=== PATIENT | female | born 1995 | race Caucasian/White ===

== ENCOUNTER 2018-05-11 21:01 | Emergency (ER) | payer MEDICAID, SELFPAY ==
[2018-05-11 21:03] VITALS: BP 164/82; PULSE 91; RESP 20; TEMP 36.6; O2SAT 100; BMI 46.7
--- NOTE | 2018-05-11 21:21 | ED.RN ---
rn called for ekg, no old ekgs in [facility]
--- NOTE | 2018-05-11 21:29 | EKG12_ITS ---
Test Reason : PALPITATIONS Blood Pressure : / mmHG Vent. Rate : 081 BPM Atrial Rate : 081 BPM P-R Int : 154 ms QRS Dur : 090 ms QT Int : 358 ms P-R-T Axes : 020 030 002 degrees QTc Int : 415 ms Normal sinus rhythm Normal ECG Confirmed by ROSA ELENA BEE MD ([id number]), rewrite editor YAIR STOKES ([id number]) on 05/15/2018 2:37:01 PM Referred By: DULCE/MARYSOL Confirmed By:ROSA ELENA BEE MD
[2018-05-11 21:47] LABS: Absolute Lymphocyte Count 1.94 X10^3/ul (0.83-4.51); Basophil# 0.03 X10^3/uL; Basophil% 0.3 % (0-1); Eosinophil# 0.07 X10^3/uL; Eosinophils% 0.6 % (0-5); Hematocrit 40.4 % (37-47); Hemoglobin 13.5 g/dl (12.0-15.0); Lymphocyte # 1.94 X10^3/ul (4.0); Lymphocyte % 16.5 % (19-41); Mean Corp Hgb Conc 33.4 g/gl (32-36); Mean Corpuscular Hgb 28.7 pg (27.0-32.0); Monocyte# 0.75 X10^3/uL; Monocyte% 6.4 % (0-10); Neutrophil # 8.99 X10^3/uL (2.7-7.7); Neutrophil % 76.1 % (47-70); POSITIVE COUNT NO; POSITIVE DIFFERENTIAL NO; POSITIVE MORPHOLOGY NO; Platelet Count 216 K/mm3 (150-450); RBC Distribution Width CV 12.9 % (11.6-14.6); White Blood Count 11.8 K/mm3 (4.4-11.0)
--- NOTE | 2018-05-11 21:51 | ED.VISSUMM ---
- ER Visit Summary Date of Service: 05/11/18 Chief Complaint: Heart beating hard History of Present Illness: The patient is a 23 F Patient states for the past couple weeks she has felt that her heart is beating hard. In asking her to describe this a little bit further she states that all of a sudden she will feel an extra beat and then her heart pauses. She went to what sounds like urgent care and had an EKG was negative and was told that if it keeps happening they would older a Holter monitor. Patient was also advised to decrease her caffeine intake. She has done this. She continues to smoke. She continues to have symptoms. She has a history of anxiety and believes that that is compounding the issue tonight. Physical Examination: Afebrile vital signs are stable Gen: Well-nourished well-developed Head: Normocephalic atraumatic Eyes: Perrl EOMI ENT: TMs clear no rhinorrhea moist mucous membranes Neck: Supple no lymphadenopathy no JVD nontender CVS: Regular rate rhythm no murmurs normal S1-S2 Respiratory: No distress clear to auscultation bilaterally chest nontender Abdomen: Soft nontender nondistended normal bowel sounds no masses Back: Nontender Extremity: Nontender no edema Skin: Normal color no rash Neuro: alert orientated ?3 CN II-XII intact normal strength sensation reflexes gait cerebellar Psych: Anxious Test Results: EKG demonstrates sinus rhythm without ectopy. See BMP TSH and test negative. Emergency Department Course and Treatment: Patient was advised to decrease caffeine use. She was advised to stop smoking. She should follow-up with primary care and discuss addition of a Holter monitor. Impression: 1. Palpitations This note was generated with Motionbox dictation software. It may contain incorrect words, spelling, and punctuation that were not noted in review of the chart prior to signing ED Disposition - Plan for ED Patient: Disposition: Home or Assisted Living Chief Complaint: Palpitations Instructions: ED Palpitations, Premature Ventricular Contractions Referrals: Walker Marroquin MD [STAFF PHYSICIAN] - (call to arrange follow up with primary care)
--- NOTE | 2018-05-11 21:58 | RAD_ITS ---
STUDY: X-RAY CHEST REASON FOR EXAM: Female, 23 years old. Chest pain TECHNIQUE: Frontal view of the chest COMPARISON: None. FINDINGS: The lungs are clear. There are no pleural effusions. There is no pneumothorax. The heart is normal in size. The visualized osseous structures are within normal limits. RAD/Chest 1 View (Portable) IMPRESSION: No acute thoracic pathology. Electronically Signed: Luis Alfredo Cruz, at 22:08 EDT Tel , Service support ,
[2018-05-11 22:10] LABS: Pregnancy, Serum, hCG Quali. NEGATIVE Negative (0-9 Nonpreg)
[2018-05-11 22:12] LABS: Anion Gap 10 (5-15); BUN 14 mg/dL (7-18); BUN/Creat Ratio 21.2 RATIO (10-20); Calcium,Total 8.8 mg/dL (8.5-10.1); Chloride 106 mmol/L (98-107); Creatinine, Serum 0.66 mg/dL (0.55-1.02); EST Glomerular Filtration Rate 120 mL/min (>60); Est Glom Filt Rate - Afr Amer 145 mL/min (>60); Estimated Creatinine Clearance 121.33 ml/min; Glucose 81 mg/dL (74-106); Potassium 3.7 mmol/L (3.5-5.1); Sodium Level 140 mmol/L (136-145); Thyroid Stim Hormone (TSH) 1.44 uIU/mL (0.358-3.74)
[2018-05-11 22:18] VITALS: BP 158/99; PULSE 82; RESP 16; O2SAT 99
== END 2018-05-11 22:24 | disposition home or self-care (01) ==
PROVIDERS: Emergency Provider Emergency Medicine
DX: R00.2 Palpitations (principal); E66.9 Obesity, unspecified; Z72.0 Tobacco use; F41.9 Anxiety disorder, unspecified; Z79.899 Other long term (current) drug therapy
CPT/HCPCS: 71045; 80048; 84443; 84703; 85025; 93005; 99285; A4216

== ENCOUNTER → 2018-05-24 10:55 | Outpatient (CLI) | payer MEDICAID, SELFPAY | PROVIDERS: Family Provider Internal Medicine; PCP Internal Medicine; Referring Provider Nurse Practitioner; Visit Provider Nurse Practitioner | DX: R00.2 Palpitations (principal) | CPT/HCPCS: 93225; 93226 ==

== ENCOUNTER 2020-02-02 21:39 | Emergency (ER) | payer MEDICAID, SELFPAY ==
[2020-02-02 21:40] VITALS: BP 158/88; PULSE 108; RESP 15; TEMP 36.7; O2SAT 96; BMI 49.8
--- NOTE | 2020-02-02 21:49 | CT_ITS ---
STUDY: CT BRAIN WITHOUT CONTRAST REASON FOR EXAM: Female, 24 years old. WARE X 3-4 DAYS WITH NUMBNESS TO LEFT SIDE RADIATION DOSAGE (If Supplied By Facility): CTDIvol = ( 44.99 ) mGy, DLP = ( 779.24 ) mGycm TECHNIQUE: Transaxial CT imaging of the brain was performed without administration of intravenous contrast material. Individualized dose optimization techniques were used for this CT. COMPARISON: No relevant priors. FINDINGS: Normal soft tissue structures. Normal calvarium. Normal size ventricles and extra-axial spaces for the patient''s age. Normal white matter tracts of the cerebral hemispheres. Normal basal ganglia and thalami. Normal brainstem. Normal cerebellum. There is no intracranial hemorrhage. There are no findings of an acute ischemic infarction. Normal visualized paranasal sinuses. CT/Brain/Head without Contrast IMPRESSION: Normal unenhanced CT scan of the brain. Electronically Signed: Gordo Babin MD at 22:54 EDT Tel , Service support ,
--- NOTE | 2020-02-02 21:50 | ED.DCSUM_ITS ---
History of Present Illness Chief Complaint: Headache Informant: Patient Onset: Days Context: Gradual Onset Timing: Intermittent Current Severity: Moderate Maximum Severity: Moderate Narrative: The patient is a 24-year-old female with medical history significant for hypertension who presents to the emergency department with headache. Patient states she is been having intermittent headache for the past 3 or 4 days. She denies any history of prior headaches. She states that from time to time, she will feel like her feet are numb. She has been nauseated without vomiting. She states that she did drink some alcohol which seemed to make the headache worse. There is no family history of aneurysm. She states she has been compliant with her medications. She denies any fevers or chills. She denies any head trauma. She is had no visual change. Prior similar symptoms: No Recent Illness/Hospitalization: No Past Medical History - Allergies and Home Meds Allergies/Adverse Reactions: Allergies No Known Allergies Allergy (Verified 02/02/20 21:44) Primary Care Physician: Mat Avila MD [STAFF PHYSICIAN] - Prior records reviewed: Yes Past Medical History: - - Hypertension Surgical History: noncontributory Smoking Status: Current every day smoker Review of Systems General: Denies: Chills, Fever, Sweats Eyes: Denies: Visual changes - bilaterally, Diplopia ENT: Denies: Rhinorrhea, Sore throat Cardiovascular: Denies: Chest pain, Palpitations Respiratory: Denies: Dyspnea, Cough, Dyspnea on exertion Gastrointestinal: Reports: Nausea. Denies: Abdominal pain, Vomiting, Diarrhea, Melena, Hematochezia Genitourinary: Denies: Dysuria, Hematuria, Frequency Musculoskeletal: Denies: Back pain, Extremity Pain Skin: Denies: Rash, Wounds Neurological: Reports: Headache. Denies: Weakness, Numbness Physical Exam Vital Signs/Narrative: Vital Signs Temp Pulse Resp BP Pulse Ox 02/02/20 21:40 98.1 F 108 H 15 158/88 H 96 Inital Vital Signs reviewed: Yes General: Well nourished, Well developed, No Acute Distress Head: Normocephalic, Atraumatic Eyes: Perrl, EOMI ENT: Moist mucous membranes, No rhinorrhea Neck: Supple, Nontender Cardiovascular: Regular rate, Regular rhythm, No murmurs Respiratory: No distress, CTA bilaterally, Chest nontender Abdomen: Soft, Nontender, Nondistended, Normal bowel sounds Back: Nontender, Normal Inspection Extremities: Nontender, No edema Skin: Normal color, No rash Neurological: Alert, Oriented x3, Cranial nerves II-XII grossly intact, Normal Strength, Normal Sensation Psychological: Normal affect, Normal Mood Diagnostic/Tx/Re-eval Clinical Impression(s) from Imaging Studies Brain CT 02/02/20 21:49 IMPRESSION: Normal unenhanced CT scan of the brain. Electronically Signed: Gordo Babin MD at 22:54 EDT Tel , Service support , Abnormal Lab Results 02/02/20 02/02/20 22:00 22:00 WBC 8.4 RBC 4.50 Hgb 13.3 Hct 40.1 MCV 89.1 MCH 29.6 MCHC 33.2 RDW Std Deviation 43.8 RDW Coeff of Roula 13.4 Plt Count 257 MPV 10.2 Immature Gran % (Auto) 0.500 Neut % (Auto) 65.5 Lymph % (Auto) 22.3 [place] % (Auto) 6.9 Eos % (Auto) 4.2 Baso % (Auto) 0.6 Absolute Neuts (auto) 5.5 Absolute Lymphs (auto) 1.87 Nucleated RBC % 0 Sodium 140 Potassium 4.1 Chloride 105 Carbon Dioxide 30.0 Anion Gap 5 BUN 9 Creatinine 0.78 Estim Creat Clear Calc 105.91 Est GFR (MDRD) Af Amer 117 Est GFR (MDRD) Non-Af 97 BUN/Creatinine Ratio 11.5 Glucose 96 Calcium 9.0 - Medical Decision Making The patient presents to the emergency department with intermittent headache. It was not sudden onset. She does not describe it as the worst headache of her life. She is not meningitic or encephalopathic. Her neurologic exam is unremarkable. However, given her lack of headache history I did obtain noncontrast head CT. This was unremarkable. With her history of hypertension, metabolic work-up was pursued. Electrolytes, CBC, and renal function are all within normal limits. The patient was treated with migraine abortive medications with improvement. She is given a dose of Decadron to prevent rebound headache. At this point, I do feel that she is safe for outpatient follow-up. Impression 1. Headache ED Disposition - Plan for ED Patient: Instructions: ED Headache Unspecified Prescriptions: Naproxen [Naprosyn] 500 mg PO BID PRN #20 tab Prescription Printed Ondansetron [Zofran Odt] 4 mg PO Q8H PRN PRN #10 tab PRN Reason: Nausea Prescription Printed Referrals: Mat Avila MD [STAFF PHYSICIAN] -
[2020-02-02] MEDS: proCHLORPERazine 10 MG/2 ML Vial IV (22:06)
[2020-02-02] MEDS: Ketorolac 30 MG/ML Syringe IV (22:06)
[2020-02-02] MEDS: 0.9% Normal Saline 1,000 ML 999 ML IV (22:06)
[2020-02-02] MEDS: DiphenhydrAMINE 50 MG/ML Syringe IV (22:07)
[2020-02-02 22:25] LABS: Absolute Lymphocyte Count 1.87 X10^3/uL (0.83-4.51); Absolute Neutrophil Count 5.5 X10^3/uL (2.0-7.7); Basophil# 0.05 X10^3/uL; Basophil% 0.6 % (0-1); Eosinophil# 0.35 X10^3/uL; Eosinophils% 4.2 % (0-5); Hematocrit 40.1 % (37-47); Hemoglobin 13.3 g/dL (12.0-15.0); Lymphocyte # 1.87 X10^3/ul (4.0); Lymphocyte % 22.3 % (19-41); Mean Corp Hgb Conc 33.2 g/dL (32-36); Mean Corpuscular Hgb 29.6 pg (27.0-32.0); Mean Corpuscular Volume 89.1 fL (81-99); Mean Platelet Vol. 10.2 fl (6.2-12.0); Monocyte# 0.58 X10^3/uL; Monocyte% 6.9 % (0-10); NRBC Flagged by Analyzer 0 % (0-5); Neutrophil % 65.5 % (47-70); Platelet Count 257 K/mm3 (150-450); RBC Distribution Width CV 13.4 % (11.6-14.6); RBC Distribution Width SD 43.8 fl (35.1-43.9); White Blood Count 8.4 K/mm3 (4.4-11.0)
[2020-02-02 22:39] LABS: Anion Gap 5 (5-15); BUN 9 mg/dL (7-18); BUN/Creat Ratio 11.5 RATIO (10-20); Chloride 105 mmol/L (98-107); Creatinine, Serum 0.78 mg/dL (0.55-1.02); EST Glomerular Filtration Rate 97 mL/min (>60); Est Glom Filt Rate - Afr Amer 117 mL/min (>60); Estimated Creatinine Clearance 105.91 ml/min; Glucose 96 mg/dL (74-106); Potassium 4.1 mmol/L (3.5-5.1); Sodium Level 140 mmol/L (136-145)
[2020-02-02] MEDS: dexAMETHasone 10 MG/ML Vial IV (23:17)
[2020-02-02 23:23] VITALS: BP 133/86; PULSE 87; RESP 17; O2SAT 100
== END 2020-02-02 23:24 | disposition home or self-care (01) ==
LOC: ED 22:12
PROVIDERS: Emergency Provider Emergency Medicine; PCP Nurse Practitioner Family
DX: R51 Headache (principal); R11.0 Nausea; I10 Essential (primary) hypertension; Z79.899 Other long term (current) drug therapy; F17.200 Nicotine dependence, unspecified, uncomplicated
CPT/HCPCS: 70450; 80048; 85025; 96374; 96375; 99283; J7030; A4216

== ENCOUNTER 2020-02-11 09:54 | Emergency (ER) | payer MEDICAID, SELFPAY ==
[2020-02-11 09:55] VITALS: BP 152/99; PULSE 86; RESP 17; TEMP 36.5; O2SAT 98; BMI 48.2
--- NOTE | 2020-02-11 10:12 | ED.VISSUMM ---
- ER Visit Summary Date of Service: 02/11/20 Chief Complaint: Headache History of Present Illness: The patient is a 24 F who goes to the [facility]. She reports that she has a headache to begin this morning at 4 AM. Is gradually gotten worse. Is a throbbing pain on the right side of her head. Is similar to prior headaches. States is 10 out of 10 at worst 9-10 currently. Is worsened by bending down. Is unrelieved with Tylenol. Reports is been nausea and vomited twice. No blood or emesis. Denies any numbness or weakness. Reports that she does seem to have some spots in her vision at the onset of this. These have resolved and her vision is normal now. Patient has any recent trauma to her head. She does report that she was out in the heat yesterday and drank 2 bottles of water. She also had 4-5 beers last night. States that she does seem to get headaches more often after drinking, but not every time she drinks. She denies any other complaints. Physical Examination: Vitals: Stable. Afebrile. General: Well-nourished and well-developed. Head: Normocephalic atraumatic. Neck: Supple, no lymphadenopathy. No JVD. Nontender. Cardiovascular: Regular rate and rhythm. No murmurs. Respiratory: No respiratory distress. Clear to auscultation bilaterally. Abdominal: Soft, nontender, nondistended, normal bowel sounds. No guarding, rebound, or peritoneal signs. Back: Nontender. Extremities: Nontender, no edema. Skin: Normal color, no rash. Neurologic: Alert and oriented ?3. Cranial nerves II through XII are intact. Normal strength and sensation. Psych: Normal affect. Test Results: Serum test is negative. Emergency Department Course and Treatment: Patient had an IV placed. She is a 1 L normal saline. She is given Toradol, Reglan, and Benadryl IV. She is resting much more comfortably. Treatment Plan: Patient be discharged prescription for Reglan. Instructed to push fluids. Follow-up with her primary care physician 1 to 2 days if not improving. Return to the emergency department for any worsening symptoms. Disposition: To home in improved and stable condition. Impression: 1. Recurrent headache. This note was generated with Collectation software. It may contain incorrect words, spelling, and punctuation that were not noted in review of the chart prior to signing ED Disposition - Plan for ED Patient: Instructions: ED Headache Unspecified Prescriptions: Metoclopramide [Reglan] 10 mg PO 4X/DAY PRN #20 tablet PRN Reason: Headache Referrals: Tg Hedrick [Primary Care Provider] - 1-2 Days if not improving
[2020-02-11] MEDS: 0.9% Normal Saline 1,000 ML 999 ML IV (10:35)
[2020-02-11] MEDS: Ketorolac 30 MG/ML Syringe IV (10:38)
[2020-02-11] MEDS: Metoclopramide 10 MG/2 ML Vial IV (10:39)
[2020-02-11] MEDS: DiphenhydrAMINE 50 MG/ML Syringe IV (10:40)
[2020-02-11 10:56] LABS: Internal QC Validated? YES +Cl - CLEAR BKGD; Pregnancy, Serum, hCG Quali. NEGATIVE Negative
[2020-02-11 12:32] VITALS: BP 164/88; PULSE 72; RESP 18; O2SAT 98
== END 2020-02-11 12:33 | disposition home or self-care (01) ==
LOC: ED 10:34
PROVIDERS: Emergency Provider Emergency Medicine
DX: R51 Headache (principal); F17.200 Nicotine dependence, unspecified, uncomplicated; I10 Essential (primary) hypertension
CPT/HCPCS: 84703; 96361; 96374; 96375; 99285; J7030; A4216

== ENCOUNTER → 2020-11-07 09:31 | Outpatient (CLI) | payer MEDICAID, SELFPAY ==
[2020-11-07 10:22] LABS: Absolute Lymphocyte Count 2.03 X10^3/uL (0.83-4.51); Absolute Neutrophil Count 4.9 X10^3/uL (2.0-7.7); Basophil# 0.04 X10^3/uL; Basophil% 0.5 % (0-1); Eosinophils% 5.1 % (0-5); Hematocrit 42.4 % (37-47); Hemoglobin 13.8 g/dL (12.0-15.0); Lymphocyte # 2.03 X10^3/ul (4.0); Lymphocyte % 25.7 % (19-41); Mean Corp Hgb Conc 32.5 g/dL (32-36); Mean Corpuscular Hgb 29.4 pg (27.0-32.0); Mean Corpuscular Volume 90.2 fL (81-99); Mean Platelet Vol. 10.6 fl (6.2-12.0); Monocyte# 0.52 X10^3/uL; Monocyte% 6.6 % (0-10); NRBC Flagged by Analyzer 0 % (0-5); Neutrophil # 4.88 X10^3/uL (2.7-7.7); Neutrophil % 61.8 % (47-70); Platelet Count 256 K/mm3 (150-450); RBC Distribution Width CV 12.9 % (11.6-14.6); RBC Distribution Width SD 42.5 fl (35.1-43.9); White Blood Count 7.9 K/mm3 (4.4-11.0)
[2020-11-07 10:59] LABS: ALB/GLOB Ratio 1.1 RATIO (0.9-2.4); AST(SGOT) 19 U/L (15-37); Alanine Aminotransfer ALT/SGPT 35 U/L (13-56); Albumin, Serum 3.7 g/dL (3.2-5.0); Alkaline Phosphatase 80 U/L (45-117); Anion Gap 5 (5-15); BUN 13 mg/dL (7-18); BUN/Creat Ratio 18.9 RATIO (10-20); Calcium,Total 8.8 mg/dL (8.5-10.1); Chloride 107 mmol/L (98-107); Cholesterol 192 mg/dL (200); Creatinine, Serum 0.69 mg/dL (0.55-1.02); EST Glomerular Filtration Rate 112 mL/min (>60); Est Glom Filt Rate - Afr Amer 135 mL/min (>60); Globulin 3.4 g/dL (2.2-4.2); Glucose 93 mg/dL (74-106); High Density Lipoprotein 39 mg/dL; Potassium 3.8 mmol/L (3.5-5.1); Protein, Total 7.1 g/dL (6.4-8.2); Sodium Level 139 mmol/L (136-145); T4 Free Direct 0.95 ng/dL (0.76-1.46); Triglycerides 113 mg/dL; Very Low Density Lipoprotein 23 mg/dL (5-40)
[2020-11-08 09:09] LABS: Thyroid Peroxidase AB < 9 IU/mL (0-34)
== END ==
DX: I10 Essential (primary) hypertension (principal); F41.9 Anxiety disorder, unspecified; E55.9 Vitamin D deficiency, unspecified
CPT/HCPCS: 36415; 80053; 80061; 82652; 84439; 84443; 85025; 86376

== ENCOUNTER → 2021-03-18 | Outpatient (CLI) | payer MEDICAID, SELFPAY ==
[2021-03-18 15:21] VITALS: BMI 49.8
[2021-03-20 20:08] LABS: Chlamydia By Nucleic Acid AMP Negative (Negative)
[2021-03-20 22:15] LABS: Gonococcus By Nucleic Acid AMP Negative (Negative)
== END | disposition home or self-care (01) ==
LOC: LABSPEC 16:28
PROVIDERS: Referring Provider Nurse Practitioner Women's Health; Visit Provider Nurse Practitioner Women's Health
DX: Z11.3 Encounter for screening for infections with a predominantly sexual mode of transmission (principal)
CPT/HCPCS: 87491; 87591

== ENCOUNTER → 2021-04-02 16:42 | Outpatient (CLI) | payer MEDICAID, SELFPAY ==
[2021-04-02 18:15] LABS: Hemoglobin A1c 4.9 % (3.8-5.6)
[2021-04-02 18:18] LABS: Estradiol 34.6 pg/mL; Follicle Stimulating Hormone 7.4 mIU/mL; Luteinizing Hormone 4.8 mIU/mL; Prolactin 10.9 ng/mL; Thyroid Stim Hormone (TSH) 2.46 uIU/mL (0.358-3.74)
[2021-04-08 20:50] LABS: Anti-Mullerian Hormone,Serum 5.76 ng/mL (.); Testosterone Free 2.6 pg/mL (0.0-4.2)
== END ==
PROVIDERS: Referring Provider Nurse Practitioner Women's Health; Visit Provider Nurse Practitioner Women's Health
DX: N97.0 Female infertility associated with anovulation (principal); Z13.29 Encounter for screening for other suspected endocrine disorder
CPT/HCPCS: 36415; 82627; 82670; 83001; 83002; 83036; 83516; 84146; 84402; 84443; 82626

== ENCOUNTER → 2021-04-20 16:54 | Outpatient (CLI) | payer MEDICAID, SELFPAY ==
[2021-04-20 18:42] LABS: Progesterone Level 0.85 ng/mL (See Comment)
== END ==
PROVIDERS: Referring Provider Nurse Practitioner Women's Health; Visit Provider Nurse Practitioner Women's Health
DX: N97.0 Female infertility associated with anovulation (principal)
CPT/HCPCS: 36415; 84144

== ENCOUNTER → 2021-07-27 10:12 | Outpatient (CLI) | payer MEDICAID, SELFPAY ==
[2021-07-27 11:00] LABS: Absolute Lymphocyte Count 2.05 X10^3/uL (0.83-4.51); Absolute Neutrophil Count 4.8 X10^3/uL (2.0-7.7); Basophil# 0.03 X10^3/uL; Basophil% 0.4 % (0-1); Eosinophils% 3.9 % (0-5); Hematocrit 38.7 % (37-47); Hemoglobin 13.2 g/dL (12.0-15.0); Lymphocyte # 2.05 X10^3/ul (0.83-4.51); Lymphocyte % 26.7 % (19-41); Mean Corp Hgb Conc 34.1 g/dL (32-36); Mean Corpuscular Hgb 29.5 pg (27.0-32.0); Mean Corpuscular Volume 86.4 fL (81-99); Mean Platelet Vol. 9.8 fl (6.2-12.0); Monocyte% 6.5 % (0-10); NRBC Flagged by Analyzer 0 % (0-5); Neutrophil # 4.77 X10^3/uL (2.7-7.7); Neutrophil % 62.1 % (47-70); Platelet Count 256 K/mm3 (150-450); RBC Distribution Width CV 13.1 % (11.6-14.6); RBC Distribution Width SD 41.2 fl (35.1-43.9); Red Blood Count 4.48 M/mm3 (4.2-5.4); White Blood Count 7.7 K/mm3 (4.4-11.0)
[2021-07-27 11:39] LABS: ALB/GLOB Ratio 1.1 RATIO (0.9-2.4); AST(SGOT) 22 U/L (15-37); Alanine Aminotransfer ALT/SGPT 44 U/L (13-56); Albumin, Serum 3.6 g/dL (3.2-5.0); Alkaline Phosphatase 89 U/L (45-117); Anion Gap 10 (5-15); BUN 13 mg/dL (7-18); BUN/Creat Ratio 16.3 RATIO (10-20); Calcium,Total 9.1 mg/dL (8.5-10.1); Chloride 105 mmol/L (98-107); EST Glomerular Filtration Rate 94 mL/min (>60); Est Glom Filt Rate - Afr Amer 113 mL/min (>60); Globulin 3.4 g/dL (2.2-4.2); Glucose 105 mg/dL (74-106); Lipase 88 U/L (73-393); Potassium 3.7 mmol/L (3.5-5.1); Sodium Level 141 mmol/L (136-145); Thyroid Stim Hormone (TSH) 1.52 uIU/mL (0.358-3.74)
[2021-07-28 08:08] LABS: H. Pylori Antibody (IgG) 0.17 (0.00-0.79)
== END ==
PROVIDERS: Referring Provider Nurse Practitioner Adult Health; Visit Provider Nurse Practitioner Adult Health
DX: R11.2 Nausea with vomiting, unspecified (principal)
CPT/HCPCS: 36415; 80053; 83690; 84443; 85025; 86677

== ENCOUNTER 2021-08-14 22:15 | Emergency (ER) | payer MEDICAID, SELFPAY ==
[2021-08-14 22:16] VITALS: BP 193/114; PULSE 82; RESP 14; TEMP 36.5; O2SAT 98; BMI 52.0
--- NOTE | 2021-08-14 22:47 | EKG12_ITS ---
Test Reason : HYPERTENSION Blood Pressure : / mmHG Vent. Rate : 073 BPM Atrial Rate : 073 BPM P-R Int : 164 ms QRS Dur : 088 ms QT Int : 394 ms P-R-T Axes : -09 028 001 degrees QTc Int : 434 ms Normal sinus rhythm Nonspecific T wave abnormality Abnormal ECG Confirmed by KIRIT CATALAN, NICOLE ([id number]), continuity editor THANH MENDENHALL ([id number]) on 08/19/2021 11:26:51 AM Referred By: MILY Confirmed By:NICOLE BETH MD
--- NOTE | 2021-08-14 23:11 | EDS_ITS ---
HPI History of Present Illness Chief Complaint: Hypertension Narrative Narrative: Patient is a 26-year-old female with past medical history of anxiety and hypertension. She states that she takes Wellbutrin as well as hydroxyzine for her anxiety and lisinopril for her hypertension. She states she took her blood pressure this evening and it was elevated. After doing so she started to become anxious and check the blood pressure again and it was now higher. She states that there is no chest pain change in vision difficulty breathing or abdominal pain but with the elevated blood pressure was concerned and comes in for evaluation. The patient denies any excessive stimulant use or illicit drug use. [facility] Medical History Anxiety Hypertension Home Medications cholecalciferol (vitamin D3) [Vitamin D3] unit PO QWEEK 05/11/18 [History Last Taken Unknown] bupropion HCl 150 mg tablet,12 hr sustained-release 150 mg PO BID 03/18/21 [History Last Taken Unknown] hydroxyzine HCl 25 mg tablet 25 mg PO BID PRN 03/18/21 [History Last Taken Unknown] losartan 50 mg tablet 50 mg PO DAILY 03/18/21 [History Last Taken Unknown] Allergy/AdvReac Type Severity Reaction Status Date / Time No Known Allergies Allergy Verified 08/14/21 22:16 Family History (Updated 08/13/21 @ 09:07 by Elsy Mcdonald) Grandfather Colon cancer Grandmother Diabetes Other Hypertension Social History (Updated 08/13/21 @ 09:08 by Elsy Mcdonald) household members: significant other current occupational status: employed current occupation: [employer] history of recent travel: No sexually active: Yes Smoking Status: Current every day smoker tobacco type: cigarettes alcohol intake: current alcohol intake frequency: a few times a month substance use type: does not use caffeine: Yes what type of physical activity do you participate in: none seatbelt use: always do you feel safe at home: Yes additional social history: single ROS ROS ED Constitutional Constitutional ED: Denies chills or fever(s) ENT ENT ED: Denies sore throat Cardiovascular Cardiovascular: Denies chest pain Respiratory/Chest Respiratory/Chest: Denies cough or dyspnea Gastrointestinal Gastrointestinal: Denies abdominal pain, diarrhea, nausea or vomiting Genitourinary Genitourinary ED: Denies dysuria Musculoskeletal Musculoskeletal: Denies myalgias Integumentary Denies rash Neurologic Neurologic: Denies headache(s) Psychiatric Psychiatric: Reports anxiety Hematologic/Lymphatic Hematologic/Lymphatic: Denies easy bleeding or easy bruising EXAM Physical Exam Const Vital Signs: 08/14/21 22:16 08/14/21 23:23 08/14/21 23:25 Temperature 97.7 F L Temperature Source Temporal Pulse Rate 82 84 Respiratory Rate 14 18 Respiratory Effort Normal Respiratory Pattern Normal Blood Pressure 193/114 H 172/106 H Blood Pressure Mean 140 128 Pulse Ox 98 98 Oxygen Delivery Method Room Air Room Air 08/15/21 00:46 Temperature Temperature Source Pulse Rate Respiratory Rate Respiratory Effort Respiratory Pattern Blood Pressure 157/102 H Blood Pressure Mean 120 Pulse Ox Oxygen Delivery Method Positive well nourished and well developed General Appearance ED: well developed HEENT Reports moist mucous membranes Eyes PERRL and EOMs intact bilaterally Neck supple Resp normal respiratory effort and clear to auscultation bilaterally Cardio regular rate and regular rhythm GI non-tender and non-distended Auscultation: normoactive bowel sounds Palpation: soft Extremity normal to inspection Neuro oriented x3 and CN's II-XII intact bilaterally Sensorium / Orientation: alert Psych Psych Narrative: Patient has a nervous/anxious affect Skin no rashes or lesions noted MDM MDM MDM Narrative Medical decision making narrative: Patient presented to the ER hypertensive but otherwise had no physical exam or HPI findings concerning for endorgan damage. She is anxious on exam as well and I do feel this is a harkins contributor to her hypertension. However with her elevated blood pressure there is concern for possible endorgan damage and so I did elect to perform basic laboratory studies as well as a EKG. as she has a normal neurologic exam with no signs of hypertensive encephalopathy I felt no need for head CT. Blood work revealed no cardiac or kidney. She was given medication in ER and her blood pressure did reduce between the 15 and 25% value which is the goal for reduction in accelerated hypertension. On reevaluation she is resting comfortably and her neuro exam remains normal and therefore at this time as her blood pressure has been improved by an acceptable value and she has no signs of endorgan damage is safe for discharge. Lab Data Attestation: I reviewed the patient's lab results. Labs: Laboratory Results - last 24 hr 08/14/21 08/14/21 23:22 23:22 WBC 8.0 RBC 4.51 Hgb 12.9 Hct 38.8 MCV 86.0 MCH 28.6 MCHC 33.2 RDW Std Deviation 38.8 RDW Coeff of Roula 12.4 Plt Count 269 MPV 9.8 Immature Gran % (Auto) 0.400 Neut % (Auto) 54.7 Lymph % (Auto) 33.4 [place] % (Auto) 6.5 Eos % (Auto) 4.4 Baso % (Auto) 0.6 Absolute Neuts (auto) 4.4 Absolute Lymphs (auto) 2.67 Nucleated RBC % 0 Sodium 140 Potassium 3.6 Chloride 107 Carbon Dioxide 26.0 Anion Gap 7 BUN 14 Creatinine 0.79 Estim Creat Clear Calc 98.81 Est GFR (MDRD) Af Amer 115 Est GFR (MDRD) Non-Af 95 BUN/Creatinine Ratio 17.7 Glucose 99 Calcium 9.3 Troponin I High Sens 3 Discharge Plan Triage Chief Complaint: Hypertension ED Provider: Darin Enriquez Dx/Rx/DC Orders Clinical Impression: Accelerated hypertension, Anxiety Instructions: Hypertension Dc Prescriptions: No Action bupropion HCl 150 mg tablet sustained-release 12 hr 150 mg PO BID RF: 0 hydroxyzine HCl 25 mg tablet 25 mg PO BID PRNRF: 0 losartan 50 mg tablet 50 mg PO DAILY RF: 0 cholecalciferol (vitamin D3) [Vitamin D3] 1,000 UNIT capsule PO QWEEK RF: 0 Primary Care Provider: Tara Larose Referrals: Tara Larose NP-C [Primary Care Provider] - Activity Restrictions/Additional Instructions: Please follow-up with your family doctor to discuss increasing or adding medication to help control your blood pressure further and return to the ER should you have any further concerns Disposition Disposition: Home, Self Care
[2021-08-14 23:23] VITALS: BP 172/106; PULSE 84; RESP 18; O2SAT 98
[2021-08-14 23:36] LABS: Absolute Lymphocyte Count 2.67 X10^3/uL (0.83-4.51); Absolute Neutrophil Count 4.4 X10^3/uL (2.0-7.7); Basophil# 0.05 X10^3/uL; Basophil% 0.6 % (0-1); Eosinophil# 0.35 X10^3/uL; Eosinophils% 4.4 % (0-5); Hematocrit 38.8 % (37-47); Hemoglobin 12.9 g/dL (12.0-15.0); Lymphocyte # 2.67 X10^3/ul (0.83-4.51); Lymphocyte % 33.4 % (19-41); Mean Corp Hgb Conc 33.2 g/dL (32-36); Mean Corpuscular Hgb 28.6 pg (27.0-32.0); Mean Platelet Vol. 9.8 fl (6.2-12.0); Monocyte# 0.52 X10^3/uL; Monocyte% 6.5 % (0-10); NRBC Flagged by Analyzer 0 % (0-5); Neutrophil # 4.37 X10^3/uL (2.7-7.7); Neutrophil % 54.7 % (47-70); Platelet Count 269 K/mm3 (150-450); RBC Distribution Width CV 12.4 % (11.6-14.6); RBC Distribution Width SD 38.8 fl (35.1-43.9); Red Blood Count 4.51 M/mm3 (4.2-5.4)
[2021-08-14] MEDS: Labetalol (Prefilled) 20 MG/4 ML IV (23:40)
[2021-08-14] MEDS: cloNIDine HCl 0.2 MG Tablet PO (23:40)
[2021-08-15 00:46] VITALS: BP 157/102
[2021-08-15 00:58] LABS: Anion Gap 7 (5-15); BUN 14 mg/dL (7-18); BUN/Creat Ratio 17.7 RATIO (10-20); Calcium,Total 9.3 mg/dL (8.5-10.1); Chloride 107 mmol/L (98-107); Creatinine, Serum 0.79 mg/dL (0.55-1.02); EST Glomerular Filtration Rate 95 mL/min (>60); Est Glom Filt Rate - Afr Amer 115 mL/min (>60); Estimated Creatinine Clearance 98.81 ml/min; Glucose 99 mg/dL (74-106); Potassium 3.6 mmol/L (3.5-5.1); Sodium Level 140 mmol/L (136-145); Troponin-I HS 3 pg/mL (3.0-54.0)
--- NOTE | 2021-08-15 01:47 | ED.RN ---
PT'S BP 153/[address] ROSSI, HOLD 2ND DOSE OF LABETALOL AND D/C PT HOME.
[2021-08-15 01:58] VITALS: PULSE 84; RESP 20; O2SAT 98
== END 2021-08-15 01:58 | disposition home or self-care (01) ==
PROVIDERS: Emergency Provider Emergency Medicine; PCP Nurse Practitioner Adult Health; Visit Provider Emergency Medicine
DX: I10 Essential (primary) hypertension (principal); F41.9 Anxiety disorder, unspecified; F17.210 Nicotine dependence, cigarettes, uncomplicated; Z79.899 Other long term (current) drug therapy
CPT/HCPCS: 80048; 84484; 85025; 93005; 96374; 99282; A4216

== ENCOUNTER → 2022-06-24 | Outpatient (CLI) | payer MEDICAID, SELFPAY ==
[2022-06-24 09:30] LABS: Hematocrit 39.4 % (37-47); Hemoglobin 13.7 g/dL (12.0-15.0); Mean Corp Hgb Conc 34.8 g/dL (32-36); Mean Corpuscular Hgb 30.4 pg (27.0-32.0); Mean Corpuscular Volume 87.4 fL (81-99); Mean Platelet Vol. 9.6 fl (6.2-12.0); Platelet Count 210 K/mm3 (150-450); RBC Distribution Width CV 14.2 % (11.6-14.6); RBC Distribution Width SD 44.4 fl (35.1-43.9); Red Blood Count 4.51 M/mm3 (4.2-5.4); White Blood Count 7.8 K/mm3 (4.4-11.0)
[2022-06-24 10:04] LABS: Follicle Stimulating Hormone 4.2 mIU/mL; Glucose 96 mg/dL (74-106); Luteinizing Hormone 11.9 mIU/mL; Thyroid Stim Hormone (TSH) 1.86 uIU/mL (0.358-3.74)
[2022-06-24 10:09] LABS: Insulin 26.7 mU/L (2.6-37.6)
[2022-07-02 22:06] LABS: Testosterone, Free 0.84 ng/dL (0.10-0.85); Testosterone, Total 47 ng/dL (13-71)
[2022-07-02 23:02] LABS: Testosterone, % Free 1.78 % (0.50-2.80)
== END | disposition home or self-care (01) ==
LOC: LAB 08:31
DX: Z01.411 Encounter for gynecological examination (general) (routine) with abnormal findings (principal); N97.0 Female infertility associated with anovulation
CPT/HCPCS: 36415; 82947; 83001; 83002; 83525; 84402; 84403; 84443; 85027

== ENCOUNTER → 2022-06-28 | Outpatient (CLI) | payer MEDICAID, SELFPAY ==
--- NOTE | 2022-06-28 12:29 | US_ITS ---
INDICATION: INFERTILITY EXAMINATION: Ultrasound US Transvaginal Non-OB TECHNIQUE: Transvaginal (for optimal evaluation of the adnexa) pelvic ultrasound was performed. Grayscale, spectral waveform, and color flow Doppler evaluation of the adnexa. COMPARISON: None. FINDINGS: UTERUS: Anteverted. The uterus measures 7.3 x 4.4 x 3.2 cm. There is no uterine mass. The cervix is within normal limits. The endometrial stripe measures 9.0 mm in AP diameter which is within normal limits. RIGHT OVARY: 1.8 x 2.1 x 2.1 cm. Non-enlarged, normal echogenicity. There is normal arterial inflow and venous outflow present in the right ovary. LEFT OVARY: 3.4 x 2.3 x 3.0 cm. Non-enlarged, normal echogenicity. There is normal arterial inflow and venous outflow present in the left ovary. FREE FLUID: None. US/Transvaginal Non- IMPRESSION: Unremarkable pelvic ultrasound. Electronically Signed: Woodrow Hernandez, at 15:18 EST ,
== END | disposition home or self-care (01) ==
LOC: OPUS 12:27
PROVIDERS: Referring Provider Nurse Practitioner Women's Health; Visit Provider Nurse Practitioner Women's Health
DX: N97.0 Female infertility associated with anovulation (principal)
CPT/HCPCS: 76830

== ENCOUNTER → 2022-09-30 | Outpatient (CLI) | payer MEDICAID, SELFPAY ==
[2022-09-30 09:39] LABS: Absolute Neutrophil Count 4.7 X10^3/uL (2.0-7.7); Basophil# 0.05 X10^3/uL; Basophil% 0.6 % (0-1); Eosinophil# 0.22 X10^3/uL; Eosinophils% 2.6 % (0-5); Hematocrit 40.5 % (37-47); Hemoglobin 13.9 g/dL (12.0-15.0); Mean Corp Hgb Conc 34.3 g/dL (32-36); Mean Corpuscular Hgb 30.7 pg (27.0-32.0); Mean Corpuscular Volume 89.4 fL (81-99); Mean Platelet Vol. 10.4 fl (6.2-12.0); Monocyte# 0.64 X10^3/uL; Monocyte% 7.5 % (0-10); NRBC Flagged by Analyzer 0 % (0-5); Neutrophil # 4.74 X10^3/uL (2.7-7.7); Neutrophil % 55.9 % (47-70); Platelet Count 228 K/mm3 (150-450); RBC Distribution Width CV 13.2 % (11.6-14.6); Red Blood Count 4.53 M/mm3 (4.2-5.4); White Blood Count 8.5 K/mm3 (4.4-11.0)
[2022-09-30 10:19] LABS: ALB/GLOB Ratio 1.1 RATIO (0.9-2.4); AST(SGOT) 45 U/L (15-37); Alanine Aminotransfer ALT/SGPT 64 U/L (13-56); Albumin, Serum 3.9 g/dL (3.2-5.0); Alkaline Phosphatase 67 U/L (45-117); Anion Gap 5 (5-15); BUN 15 mg/dL (7-18); BUN/Creat Ratio 16.3 RATIO (10-20); Calcium,Total 9.4 mg/dL (8.5-10.1); Chloride 102 mmol/L (98-107); Creatinine, Serum 0.92 mg/dL (0.55-1.02); EST Glomerular Filtration Rate 79 mL/min (>60); Est Glom Filt Rate - Afr Amer 95 mL/min (>60); Globulin 3.6 g/dL (2.2-4.2); Glucose 97 mg/dL (74-106); Lipase 104 U/L (73-393); Potassium 4.1 mmol/L (3.5-5.1); Protein, Total 7.5 g/dL (6.4-8.2); Sodium Level 138 mmol/L (136-145)
== END | disposition home or self-care (01) ==
LOC: LAB 08:28
PROVIDERS: Visit Provider Nurse Practitioner Family
DX: A08.4 Viral intestinal infection, unspecified (principal)
CPT/HCPCS: 36415; 80053; 83690; 85025

== ENCOUNTER → 2023-05-25 | Outpatient (CLI) | payer MEDICAID, SELFPAY ==
--- NOTE | 2023-05-25 12:04 | EKG12_ITS ---
Test Reason : HYPERTENSION/PREG Blood Pressure : / mmHG Vent. Rate : 100 BPM Atrial Rate : 100 BPM P-R Int : 138 ms QRS Dur : 084 ms QT Int : 334 ms P-R-T Axes : 021 040 011 degrees QTc Int : 430 ms Normal sinus rhythm Normal ECG Confirmed by CRISTAL CATALAN, ROSA ELENA ([id number]), news videotape editor KRISTOFER NOWAK ([id number]) on 05/26/2023 6:52:22 AM Referred By: Moon Hi Confirmed By:ROSA ELENA BEE MD
== END | disposition home or self-care (01) ==
LOC: PSN 12:04
PROVIDERS: Referring Provider Nurse Practitioner Family; Visit Provider Nurse Practitioner Family
DX: E66.9 Obesity, unspecified (principal); I10 Essential (primary) hypertension
CPT/HCPCS: 93005

== ENCOUNTER → 2023-07-29 | Outpatient (CLI) | payer MEDICAID, SELFPAY | END | disposition home or self-care (01) | LOC: SL 20:02 | PROVIDERS: Referring Provider Obstetrics & Gynecology; Visit Provider Obstetrics & Gynecology | DX: G47.10 Hypersomnia, unspecified (principal); E66.01 Morbid (severe) obesity due to excess calories; R06.83 Snoring | CPT/HCPCS: 95810 ==

== ENCOUNTER → 2023-08-19 | Outpatient (CLI) | payer MEDICAID, SELFPAY | END | disposition home or self-care (01) | LOC: SL 11:53 | PROVIDERS: Visit Provider Nurse Practitioner Acute Care | DX: Z46.89 Encounter for fitting and adjustment of other specified devices (principal) ==

== ENCOUNTER 2023-09-01 09:40 | Inpatient (IN) | payer MEDICAID, SELFPAY ==
--- NOTE | 2023-08-23 12:21 | HP.PCM_ITS ---
History and Physical Date of Admission: 09/01/23 HPI: The patient is a 28 year old female presenting for pre-operative visit. She is scheduled for , for chronic htn, elective c/s on 09/01/23. Procedure discussed along with risks, benefits and complications. Other alternatives discussed for management. Consent form signed? Yes. ? ? PAST MEDICAL HISTORY PAST MEDICAL HISTORY Diagnosis Date ? Adjustment disorder with anxiety 03/17/2011 ? Asthma 2010 ? 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 Blood dyscrasia ? ? Hypertension ? ? Obesity, Class III, BMI >= 40 07/28/2018 ? Oral herpes ? ? PCOS (polycystic ovarian syndrome) ? ? PMH - PAST MEDICAL HISTORY OF 2001 ? normal color vision ? PTSD (post-traumatic stress disorder) 04/09/2011 ? Varicella without mention of complication age 5 years ? ? PAST SURGICAL HISTORY PAST SURGICAL HISTORY Procedure Laterality Date ? NONE ? CURRENT MEDICATIONS Current Outpatient Medications Medication Sig Dispense Refill ? sertraline (ZOLOFT) 25 mg tablet Take 1 tablet by mouth once daily. 30 tablet 3 ? labetalol (TRANDATE) 300 mg tablet Take 1 tablet by mouth three times a day. 90 tablet 2 ? BLOOD PRESSURE MONITOR WITH WIDE CUFF 1 Each as directed. 1 Each 0 ? aspirin, enteric coated (ECOTRIN LOW STRENGTH) 81 mg EC tablet Take 1 tablet by mouth once daily. 90 tablet 3 ? metFORMIN ER (GLUMETZA) 500 mg 24 hr tablet Take 500 mg by mouth daily with breakfast. ? ? ? NIFEdipine XL (ADALAT CC) 60 mg 24 hr tablet Take 60 mg by mouth once daily. ? ? ? famotidine (PEPCID) 20 mg tablet Take 20 mg by mouth twice daily. ? ? ? folic acid 400 mcg tablet Take 800 mcg by mouth once daily. ? ? ? PNV 119-iron fum-folic acid ( 19) 29 mg iron- 1 mg tab Take by mouth. ? ? ? acyclovir (ZOVIRAX) 400 mg tablet Take 1 tablet by mouth three times daily. 21 tablet 0 ? Cholecalciferol, Vitamin D3, 5,000 unit cap Take 1 capsule by mouth once daily. 30 capsule 3 ? No current facility-administered medications for this visit. ? ? ALLERGIES: Patient has no known allergies. ? PERSONAL HISTORY: SOCIAL HISTORY Social History ? Tobacco Use ? Smoking status: Former ? ? Packs/day: .5 ? ? Types: Cigarettes ? ? Start date: 08/08/2012 ? ? Quit date: 01/12/2023 ? ? Years since quittin.6 ? Smokeless tobacco: Never Vaping Use ? Vaping Use: Former ? Start date: 01/12/2023 ? Substances: Nicotine Substance Use Topics ? Alcohol use: Not Currently ? ? Comment: occasional 3 glasses of wine ? Drug use: Not Currently ? ? Types: Marijuana ? ? Comment: In high school marijuana and Xanax ? FAMILY HISTORY: FAMILY HISTORY FAMILY HISTORY Problem Relation Age of Onset ? Hypertension Mother ? ? other (mva) Father ? ? No Known Problems Sister ? ? No Known Problems Sister ? ? No Known Problems Brother ? ? Hypertension Maternal Grandmother ? ? Obesity Maternal Grandmother ? ? Hypertension Maternal Grandfather ? ? other (enlarged heart) Maternal Grandfather ? ? other (hypothyroid) Maternal Grandfather ? ? Lung Cancer Paternal Grandmother ? ? No Known Problems Paternal Grandfather ? ? other (hypothyroid) Other ? ? mggm ? Diabetes Other ? ? aunt ? ? REVIEW OF SYMPTOMS: GENERAL: denies fevers or chills ENDOCRINOLOGY: has not been on steroids Cardiology : denies palpitations or chest pain Respiratory: denies SOB or cough Hematology: denies history of prolonged bleeding or easy bruising or VTE Allergy: Denies history of personal or family history of allergy to anesthesia ? PHYSICAL EXAMINATION: ? VITALS: Blood pressure 122/70, weight (!) 306 lb (138.8 kg), last menstrual period 12/06/2022. ? GENERAL: The patient is well nourished, well hydrated in no acute distress. , The patient is oriented to time, place, and person. NECK: Supple. No lynphadenopathy, normal thyroid, no thyromegaly. LUNGS: Clear to auscultation bilaterally. no wheezes, rhonchi or rales HEART: Regular rate and rhythm, Normal heart sounds, and No murmurs or gallops GENITALIA: Normal external genitalia, Urethral meatus normal, Bladder nontender, normal vagina and normal vaginal tone, normal cervix, normal uterus, size and consistency, normal adnexa without masses or tenderness, and perineum WNL ABd- soft, non tender, gravid, moderate pannus ? IMPRESSION: Estimated Date of Delivery: 09/12/23 Chronic HTN, maternal obesity, desires elective primary c/s ? PLAN: The risks/benefits/alternatives and personal involved for the planned c- section were reviewed with the patient. Her questions were answered to her satisfaction and she desires to proceed. Consent was signed. I reviewed with her postop instructions and expectations. ? ? I have reviewed and updated past medical and surgical history, medications and allergies Assessment & Plan Assessment/Plan (1) Supervision of high risk in third trimester: (2) Hypertension: (3) Obstructive sleep apnea: (4) BMI 50.0-59.9, adult: (5) Maternal obesity syndrome in third trimester:
[2023-09-01] VITALS (22 sets, daily range): BP systolic 110–142; BP diastolic 42–87; PULSE 74–91; RESP 12–20; TEMP 36.2–37; O2SAT 95–100; BMI 51.2
[2023-09-01] MEDS: Lactated Ringers 1,000 ML 999 ML IV (10:10)
[2023-09-01 10:33] LABS: Absolute Lymphocyte Count 1.47 X10^3/uL (0.83-4.51); Absolute Neutrophil Count 6.3 X10^3/uL (2.0-7.7); Basophil# 0.02 X10^3/uL; Basophil% 0.2 % (0-1); Eosinophil# 0.09 X10^3/uL; Eosinophils% 1.1 % (0-5); Hemoglobin 10.3 g/dL (12.0-15.0); Lymphocyte # 1.47 X10^3/ul (0.83-4.51); Lymphocyte % 17.4 % (19-41); Mean Corp Hgb Conc 33.2 g/dL (32-36); Mean Corpuscular Hgb 27.5 pg (27.0-32.0); Mean Corpuscular Volume 82.7 fL (81-99); Mean Platelet Vol. 10.4 fl (6.2-12.0); Monocyte# 0.49 X10^3/uL; Monocyte% 5.8 % (0-10); NRBC Flagged by Analyzer 0 % (0-5); Neutrophil # 6.34 X10^3/uL (2.7-7.7); Neutrophil % 74.9 % (47-70); Platelet Count 233 K/mm3 (150-450); RBC Distribution Width CV 14.1 % (11.6-14.6); RBC Distribution Width SD 41.9 fl (35.1-43.9); Red Blood Count 3.75 M/mm3 (4.2-5.4); White Blood Count 8.5 K/mm3 (4.4-11.0)
[2023-09-01 11:08] LABS: Syphilis Antibodies Non-reactive
[2023-09-01] MEDS: Acetaminophen 500 MG Tablet 1000 MG PO ×3 (11:28→23:23)
[2023-09-01] MEDS: Sodium Citrate/Citric Acid 30 ML UDC PO (11:31)
[2023-09-01] MEDS: Cefazolin 3 GM in 0.9% Normal Saline (100mL Bag) 100 ML IV (12:10)
--- NOTE | 2023-09-01 12:15 | EX.PCM.OBRPT ---
Assessment & Plan (1) Maternal obesity syndrome in third trimester: (2) BMI 50.0-59.9, adult: (3) Supervision of high risk in third trimester: Maternal Data Information Final GUALBERTO: 09/12/23 Gestational age: 38 3/7 Details Operative Information Date of Procedure: 09/01/23 Pre-Operative Diagnosis: obesity, chronic HTN, elective primary c/s Post-Operative Diagnosis: same Classification: Scheduled Procedure Type: low transverse driver education instructor #1: Kyle Murcia driver education instructor #2: Concha Macias MS3 Type of Anesthesia: Spinal Anesthesiologist: Philly Parkinson Special Medications: none Antibiotic Given: Ancef 3 grams IV x1 Drain: Baez to straight drain Estimated Blood Loss: 800 Fluids Replaced: 600 Procedure Start Time: 12:24 Procedure Stop Time: 13:10 Time of Delivery: 12:28 Findings Description of Procedure: The patient was taken to the operating room. She was prepped and draped in the dorsal supine position with a leftward tilt. A Pfannenstiel skin incision was made approximately 2 cm above the symphysis pubis and carried through to underlying layer fascia with the scalpel. The fascia was incised incised in the midline and extended laterally with the Bryant scissors. The fascia was dissected off the rectus muscles with blunt and sharp dissection. The rectus muscles were in the midline and the peritoneum was entered bluntly. The peritoneal incision was stretched and the bladder blade was placed. The Ky O retractor was placed in the usual fashion. The uterine incision was made in a low transverse fashion with the scalpel and extended superiorly and inferiorly with blunt dissection. The amniotic membranes were ruptured bluntly and clear amniotic fluid returned. The 's head was brought to the incision in the flexed position and delivered without difficulty. The remainder of the infant was delivered with gentle traction and fundal pressure in the standard fashion. The mouth and nares were bulb suctioned. The cord was clamped and cut as the infant was stimulated. Cord clamping was delayed 30 seconds. The was handed off to the waiting nursing staff. The placenta was delivered with fundal massage and gentle traction in the standard fashion. The uterus was left in the peritoneal cavity and cleared of all clots and debris. The cervix was dilated with a ring forcep. The uterine incision was closed with #1 Vicryl in a running locked fashion. A second layer of the same suture was used in an imbricating fashion to obtain hemostasis. The incision was examined and was found to be hemostatic. Some hemoblast was placed over the uterine incision after any bleeding was Bovie cauterized. The rectus muscles were examined and any bleeding was Bovie cauterized. The parietal peritoneum and rectus muscles were closed en bloc with an 0 Vicryl running suture. The surgical teams outer gloves were then changed. The rectus fascia was examined and any bleeding was Bovie cauterized and the rectus fascia was closed with looped PDS suture in a running standard fashion. The subcutaneous tissue was examining and any bleeding was Bovie cauterized. The subcutaneous tissue was reapproximated with 3-0 Vicryl suture. The skin was closed in a subcuticular fashion by the CYTOTECHNOLOGIST/CYTOLOGY SUPERVISOR with me present in the labor and delivery suite. I performed the remainder of the procedure with assistance. All sponge, lap, and needle counts were correct. The patient was taken to her room for recovery in a stable condition. Normal uterus tubes and ovaries noted. Presentation: Positive for Vertex Amniotic Membrane Rupture Type: Artificial Amniotic Fluid Description: Clear Placental Delivery Description: Expressed Placenta Disposition: [facility] Cord Vessel Description: 3 Vessels Cord Entanglement: None Infant A Gender: Male (1 minute): 8 (5 minute): 9 Complications Complications: none Admit VTE Documentation VTE Present on Admission: No VTE Mechan Device Prophylaxis: SCD's VTE Pharm Prophylaxis Ordered: Yes
[2023-09-01] MEDS: Oxytocin 15 Units/NS 250ml 15 UNITS/250 ML IV.SOLN 83 UNITS IV (13:30)
[2023-09-01] MEDS: Ketorolac 30 MG/ML Syringe IV ×2 (14:11→20:05)
[2023-09-01] MEDS: Labetalol 100 MG Tablet 300 MG PO ×2 (14:50→21:35)
[2023-09-01] MEDS: Lactated Ringers 1,000 ML 100 ML IV (17:23)
[2023-09-02] MEDS: Enoxaparin 40 MG/0.4 ML Syringe SC ×2 (00:13→11:51)
[2023-09-02] MEDS: Ketorolac 30 MG/ML Syringe IV ×4 (01:30→19:51)
[2023-09-02] MEDS: 0.9% Saline Lock 10 ML Syringe IV ×4 (01:30→19:51)
[2023-09-02 04:45] VITALS: BP 151/84; PULSE 83; RESP 16; TEMP 36.7; O2SAT 97
[2023-09-02] MEDS: Labetalol 100 MG Tablet 300 MG PO ×3 (05:59→22:02)
[2023-09-02] MEDS: Acetaminophen 500 MG Tablet 1000 MG PO ×3 (06:01→19:10)
[2023-09-02 06:28] LABS: Hematocrit 26.7 % (37-47); Hemoglobin 8.9 g/dL (12.0-15.0); Mean Corp Hgb Conc 33.3 g/dL (32-36); Mean Corpuscular Hgb 27.7 pg (27.0-32.0); Mean Corpuscular Volume 83.2 fL (81-99); Mean Platelet Vol. 10.3 fl (6.2-12.0); Platelet Count 203 K/mm3 (150-450); RBC Distribution Width CV 14.1 % (11.6-14.6); RBC Distribution Width SD 42.7 fl (35.1-43.9); Red Blood Count 3.21 M/mm3 (4.2-5.4); White Blood Count 10.2 K/mm3 (4.4-11.0)
[2023-09-02 07:59] VITALS: BP 120/69; PULSE 77; RESP 15; TEMP 36.1; O2SAT 97
--- NOTE | 2023-09-02 08:21 | PN.OBGYN_ITS ---
Subjective Subjective Doing well per patient and nursing staff. Ambulating and taking PO without difficulty. Voiding and passing flatus. Pain controlled. , services for assistance. Denies headache, visual changes, chest pain, shortness of breath, leg pain or increased bleeding. Lochia normal. Objective Data Objective Data Vital Signs: Vital Signs Temp Pulse Resp BP Pulse Ox O2 Del Method 97 F L 77 15 120/69 97 Room Air 09/02/23 07:59 09/02/23 07:59 09/02/23 07:59 09/02/23 07:59 09/02/23 07:59 09/02/23 07:59 Oxygen Delivery Method Room Air Weight: 308 lb Body Mass Index (BMI) 51.2 Intake & Output: Intake and Output for Last 24 Hours 08/31/23 09/01/23 09/02/23 23:59 23:59 23:59 Intake Total 1984 Output Total 2300 / 2300 350 / 350 Balance -315 / -315 -350 / -350 Lab / Micro Data 09/02/23 06:05 Labs: Laboratory Results - last 24 hr 09/01/23 10:10: WBC 8.5, RBC 3.75 L, Hgb 10.3 L, Hct 31.0 L, MCV 82.7, MCH 27.5, MCHC 33.2, RDW Std Deviation 41.9, RDW Coeff of Roula 14.1, Plt Count 233, MPV 10.4, Immature Gran % (Auto) 0.600, Neut % (Auto) 74.9 H, Lymph % (Auto) 17.4 L, [place] % (Auto) 5.8, Eos % (Auto) 1.1, Baso % (Auto) 0.2, Absolute Neuts (auto) 6.3, Absolute Lymphs (auto) 1.47, Nucleated RBC % 0, Syphilis Total Ab Non- reactive, Blood Type A POSITIVE, Antibody Screen NEGATIVE 09/02/23 06:05: WBC 10.2, RBC 3.21 L, Hgb 8.9 L, Hct 26.7 L, MCV 83.2, MCH 27.7, MCHC 33.3, RDW Std Deviation 42.7, RDW Coeff of Roula 14.1, Plt Count 203, MPV 10.3 ROS Constitutional Constitutional: Reports systems reviewed and no addt'l complaints, except as d ocumented; Denies headache(s) Eyes Eyes: Denies acute decrease in peripheral vision, blurry vision or change in vision ENT HEENT: Reports systems reviewed and no addt'l complaints, except as documented Cardiovascular Cardiovascular: Denies chest pain or dizziness Respiratory/Chest Respiratory/Chest: Denies cough, dyspnea, dyspnea on exertion, shortness of breath at rest or shortness of breath with exertion Gastrointestinal Gastrointestinal: Denies abdominal pain, diarrhea, nausea or vomiting Genitourinary Genitourinary: Denies abdominal discomfort Musculoskeletal Musculoskeletal: Denies limited range of motion Integumentary Integumentary: Reports systems reviewed and no addt'l complaints, except as documented Neurologic Neurologic: Reports systems reviewed and no addt'l complaints, except as documented Psychiatric Psychiatric: Reports systems reviewed and no addt'l complaints, except as documented Endocrine Endocrinology: Reports systems reviewed and no addt'l complaints, except as documented Hematologic/Lymphatic Hematologic/Lymphatic: Reports systems reviewed and no addt'l complaints, except as documented Allergic/Immunologic Allergic/Immunologic: Reports systems reviewed and no addt'l complaints, except as documented Physical Exam Const alert and oriented x3 General Appearance: cooperative Orientation / Consciousness: awake, oriented to person, oriented to place and oriented to time Exam Limitations: no limitations HEENT normocephalic Head and Scalp: normal to inspection, normocephalic and atraumatic Face and Sinus: normal facial exam Eyes General Eye: normal appearance of both eyes Neck full ROM Chest Chest: symmetrical chest wall rise Resp normal respiratory effort and normal air movement Auscultation: clear to auscultation bilaterally Cardio regular rate, regular rhythm, S1 normal heart sound, S2 normal heart sound, no murmurs, no rub, no gallops and no clicks GI normal to inspection, nondistended, normoactive bowel sounds and non-tender GI Narrative: Dressing dry and intact appearance of the vagina normal Bladder / Kidney Exam: no CVA tenderness Back/Spine normal ROM Extremity normal to inspection and full ROM Skin no rashes or lesions noted Neuro oriented x3, CN's II-XII intact bilaterally and moves all extremities Sensorium / Orientation: awake, alert and oriented to person Motor Exam: clonus absent Deep Tendon Reflexes: Rt Patellar (L4): 2+ and Lt Patellar (L4): 2+ Assessment & Plan (1) BMI 50.0-59.9, adult: (2) Obesity: QUALIFIERS: Obesity type: due to excess calories Obesity classification: adult class 3 (BMI >= 40) Serious obesity comorbidity presence: with serious comorbidity Body mass index: BMI 50.0-59.9 Qualified Code(s): E66.01 - Morbid (severe) obesity due to excess calories; Z68.43 - Body mass index [BMI] 50.0-59.9, adult (3) Obstructive sleep apnea: (4) Hypertension: (5) History of substance abuse: COMMENT: in recovery for years, part of a negative previous relationship (6) Depression: COMMENT: wellbutrin (7) ASCUS of cervix with negative high risk HPV: COMMENT: 2020:rpt 3 yr (8) S/P repeat low transverse : (9) Acute blood loss anemia: PLAN: Plan 1) Vitals stable, continue Procardia and watch for increased BP. Asymptomatic, no signs of preeclampsia 2) I&O 3) Pain management 4) Hgb 8.9, Ferrous Sulfate 325mg PO once daily, repeat tomorrow morning. 5) Planning D/C home tomorrow
[2023-09-02] MEDS: metFORMIN HCl 500 MG Tablet PO (09:44)
[2023-09-02] MEDS: Senna/Docusate Sodium 1 Tablet PO (09:44)
[2023-09-02] MEDS: Sertraline 50 MG Tablet 25 MG PO (09:45)
[2023-09-02] MEDS: NIFEdipine 90 MG Tablet PO (09:45)
[2023-09-02 13:24] VITALS: BP 122/71; PULSE 89; RESP 16; TEMP 36.4; O2SAT 95
[2023-09-02] MEDS: Ferrous Sulfate 325 MG Tablet PO (13:47)
--- NOTE | 2023-09-02 16:56 | CASEMGMT ---
Labor and Delivery Social Work Sw met with patient at bedside. Completed psychosocial assessment. Sw provided literature and information on depression and baby blues. MOB completed [place] Depression scale, score of 3. Education and support provided. Per emilio okay for MOB and baby to be discharged when medically ready. Complete psychosocial assessment note to follow. Leroy Eagle, SHEARER HELPER, ADVERTISING SALES MANAGER
[2023-09-02 19:45] VITALS: BP 133/75; PULSE 87; RESP 16; TEMP 36.6; O2SAT 99
[2023-09-02 22:00] VITALS: BP 145/70
--- NOTE | 2023-09-03 00:18 | PCM.PN.OB ---
Subjective Subjective Doing well per patient and nursing staff. Ambulating and taking PO without difficulty. Voiding and passing flatus. Pain controlled. , services for assistance. Denies headache, visual changes, chest pain, shortness of breath, leg pain or increased bleeding. Lochia normal. Objective Data Objective Data Vital Signs: Vital Signs Temp Pulse Resp BP Pulse Ox O2 Del Method 97.9 F 87 16 133/75 H 99 Room Air 09/02/23 19:45 09/02/23 19:45 09/02/23 19:45 09/02/23 19:45 09/02/23 19:45 09/02/23 19:45 Oxygen Delivery Method Room Air Weight: 308 lb Body Mass Index (BMI) 51.2 Intake & Output: Intake and Output for Last 24 Hours 09/01/23 09/02/23 09/03/23 23:59 23:59 23:59 Intake Total 1984 Output Total 2300 / 2300 350 / 350 Balance -315 / -315 -350 / -350 Lab / Micro Data 09/02/23 06:05 Labs: Laboratory Results - last 24 hr 09/02/23 06:05: WBC 10.2, RBC 3.21 L, Hgb 8.9 L, Hct 26.7 L, MCV 83.2, MCH 27.7, MCHC 33.3, RDW Std Deviation 42.7, RDW Coeff of Roula 14.1, Plt Count 203, MPV 10.3 ROS Constitutional Constitutional: Reports systems reviewed and no addt'l complaints, except as documented; Denies headache(s) Eyes Eyes: Denies acute decrease in peripheral vision, blurry vision or change in vision ENT HEENT: Reports systems reviewed and no addt'l complaints, except as documented Cardiovascular Cardiovascular: Denies chest pain or dizziness Respiratory/Chest Respiratory/Chest: Denies cough, dyspnea, dyspnea on exertion, shortness of breath at rest or shortness of breath with exertion Gastrointestinal Gastrointestinal: Denies abdominal pain, diarrhea, nausea or vomiting Genitourinary Genitourinary: Denies abdominal discomfort Musculoskeletal Musculoskeletal: Denies limited range of motion Integumentary Integumentary: Reports systems reviewed and no addt'l complaints, except as documented Neurologic Neurologic: Reports systems reviewed and no addt'l complaints, except as documented Psychiatric Psychiatric: Reports systems reviewed and no addt'l complaints, except as documented Endocrine Endocrinology: Reports systems reviewed and no addt'l complaints, except as documented Hematologic/Lymphatic Hematologic/Lymphatic: Reports systems reviewed and no addt'l complaints, except as documented Allergic/Immunologic Allergic/Immunologic: Reports systems reviewed and no addt'l complaints, except as documented Physical Exam Const alert and oriented x3 General Appearance: cooperative Orientation / Consciousness: awake, oriented to person, oriented to place and oriented to time Exam Limitations: no limitations HEENT normocephalic Head and Scalp: normal to inspection, normocephalic and atraumatic Face and Sinus: normal facial exam Eyes General Eye: normal appearance of both eyes Neck full ROM Chest Chest: symmetrical chest wall rise Resp normal respiratory effort and normal air movement Auscultation: clear to auscultation bilaterally Cardio regular rate, regular rhythm, S1 normal heart sound, S2 normal heart sound, no murmurs, no rub, no gallops and no clicks GI normal to inspection, nondistended, normoactive bowel sounds and non-tender GI Narrative: Dressing dry and intact appearance of the vagina normal Bladder / Kidney Exam: no CVA tenderness Back/Spine normal ROM Extremity normal to inspection and full ROM Skin no rashes or lesions noted Neuro oriented x3, CN's II-XII intact bilaterally and moves all extremities Sensorium / Orientation: awake, alert and oriented to person Motor Exam: clonus absent Deep Tendon Reflexes: Rt Patellar (L4): 2+ and Lt Patellar (L4): 2+ Assessment & Plan (1) Acute blood loss anemia: (2) S/P repeat low transverse : (3) BMI 50.0-59.9, adult: (4) Hypertension: (5) Depression: COMMENT: wellbutrin PLAN: Plan 1) POD #2 Repeat LTCS 2) I&O 3) Ambulation 4) Vitals stable 5) Pain management 6) Planning D/C home 7) Chronic HTN, continue medication regimen.
[2023-09-03] MEDS: Acetaminophen 500 MG Tablet 1000 MG PO ×4 (01:33→18:43)
[2023-09-03] MEDS: Ketorolac 30 MG/ML Syringe IV ×2 (01:33→08:33)
[2023-09-03] MEDS: Enoxaparin 40 MG/0.4 ML Syringe SC ×2 (01:33→11:02)
[2023-09-03] MEDS: 0.9% Saline Lock 10 ML Syringe IV (01:33)
[2023-09-03 02:00] VITALS: BP 133/68; PULSE 84; RESP 16; TEMP 36.5; O2SAT 96
--- NOTE | 2023-09-03 02:45 | DS.PCM_ITS ---
Providers Date of Admission: 09/01/23 Primary Care Physician: [facility] Reason For Visit: PRIMARY C SECTION Diagnosis Discharge Diagnosis (1) Acute blood loss anemia: Status: Acute Code(s): D62 - Acute posthemorrhagic anemia (2) S/P repeat low transverse : Status: Acute Code(s): Z98.891 - History of uterine scar from previous surgery (3) BMI 50.0-59.9, adult: Status: Acute Code(s): Z68.43 - Body mass index [BMI] 50.0-59.9, adult (4) Hypertension: Status: Chronic Code(s): I10 - Essential (primary) hypertension (5) Depression: Status: Acute Code(s): F32.9 - Major depressive disorder, single episode, unspecified Plan 1) POD #2 Repeat LTCS 2) I&O 3) Ambulation 4) Vitals stable 5) Pain management 6) Planning D/C home 7) Chronic HTN, continue medication regimen. Medications at Discharge Home Medications cholecalciferol (vitamin D3) 25 mcg (1,000 unit) capsule (Vitamin D3) unit PO QWEEK 05/11/18 acyclovir 400 mg tablet 400 mg PO TID PRN 08/19/23 folic acid 400 mcg tablet 0.4 mg PO DAILY 08/19/23 labetalol 300 mg tablet mg PO TID 08/19/23 metformin 500 mg tablet 500 mg PO DAILY 08/19/23 nifedipine 60 mg tablet,extended release mg PO DAILY 08/19/23 vitamins no.119-iron fumarate 29 mg-folic acid 1 mg tablet (Se-Juan Manuel-19) tab PO DAILY 08/19/23 sertraline 25 mg tablet mg PO DAILY 08/19/23 acetaminophen 500 mg tablet 1,000 mg (2 x 500 mg) PO Q6H #0 tabs 09/03/23 ferrous sulfate 325 mg (65 mg iron) tablet (FeroSul) 325 mg PO DAILY@1200 #0 tabs 09/03/23 naproxen 500 mg tablet 500 mg PO Q8H #0 tabs 09/03/23 nifedipine 90 mg tablet,extended release 90 mg PO DAILY #30 tabs 09/03/23 sennosides 8.6 mg-docusate sodium 50 mg tablet (Stool Softener-Stimulant Laxati ve) 1 - 2 tab PO DAILY #0 tabs 09/03/23 Hospital Course Operations section Procedures None Summary of Care Provided Minutes Spent on Discharge: 15 Hospital Course: Presented on 09/01 for repeat LTCS. course with acute blood loss anemia. Discharge home on POD #2 Weight / BMI Weight Weight: 308 lb Body Mass Index (BMI) 51.2 ABG / Lab / Microbiology Data 09/02/23 06:05 Laboratory: Laboratory Results - last 24 hr 09/02/23 06:05: WBC 10.2, RBC 3.21 L, Hgb 8.9 L, Hct 26.7 L, MCV 83.2, MCH 27.7, MCHC 33.3, RDW Std Deviation 42.7, RDW Coeff of Roula 14.1, Plt Count 203, MPV 10.3 D/C Instructions Discharge Diet: No restrictions Discharge Activity: Return to Normal Activity, May Not Drive and May Shower May resume sexual activity in: 6 weeks Weight Bearing Status: Full weight bearing Lifting Restricted to (Lbs): 20 Call your doctor if your incision/area has: Continuous Slow Oozing, Sudden Increased Bleeding, Increased Pain/ Swelling, Increased Redness, Foul Smelling Discharge and Swelling at the incision site Call your doctor if you observe: Fever of 101 or Higher, Inability to urinate, Inability to have a bowel movement, Using more than 1 pad per hour, Shortness of breath, Chest pain, Increased palpitations (irregular heartbeat), Calf discomfort and Uncontrolled pain Suture Line Care: Avoid Pulling/Pushing Remove Dressing in: 5 days Cleanse incision/area with: Soap & Water Please Follow Up With: Sarah Ferrara MD When: 1 week for incision check and 6 weeks for visit Meaningful Use Info Meaningful Use Diagnoses (Choose all that apply): None applicable Discharge Plan Admission Admit Date/Time: 09/01/23 09:40 Primary Reason for Your Visit: Repeat Section Attending Provider: [facility] Ferrara [facility]Pres[facility] Prescriptions: New nifedipine 90 mg Tablet Extended Release 90 mg PO DAILY Qty: 30 0RF sennosides-docusate sodium [Stool Softener-Stimulant Laxat] 8.6-50 mg Tablet 1 - 2 tab PO DAILY Qty: 0 0RF acetaminophen 500 mg Tablet 1,000 mg PO Q6H Qty: 0 0RF ferrous sulfate [FeroSul] 325 mg (65 mg iron) Tablet 325 mg PO DAILY@1200 Qty: 0 0RF naproxen 500 mg Tablet 500 mg PO Q8H Qty: 0 0RF Continued sertraline 25 mg tablet PO DAILY labetalol 300 mg tablet PO TID metformin 500 mg tablet 500 mg PO DAILY folic acid 400 mcg tablet 0.4 mg PO DAILY Se-Juan Manuel-19 29 mg iron- 1 mg tablet PO DAILY acyclovir 400 mg tablet 400 mg PO TID PRN cholecalciferol (vitamin D3) [Vitamin D3] 1,000 UNIT capsule PO QWEEK Discontinued aspirin 81 mg tablet,delayed release (DR/EC) PO DAILY No Action nifedipine 60 mg tablet extended release PO DAILY Referrals / Follow [facility] [Primary Care Provider] - Disposition Disposition (needs filled in before D/C Order can be placed): Home, Self Care
[2023-09-03 04:09] LABS: Absolute Lymphocyte Count 1.99 X10^3/uL (0.83-4.51); Absolute Neutrophil Count 5.5 X10^3/uL (2.0-7.7); Basophil# 0.02 X10^3/uL; Basophil% 0.2 % (0-1); Eosinophil# 0.12 X10^3/uL; Eosinophils% 1.5 % (0-5); Hematocrit 26.1 % (37-47); Hemoglobin 8.6 g/dL (12.0-15.0); Lymphocyte # 1.99 X10^3/ul (0.83-4.51); Lymphocyte % 24.7 % (19-41); Mean Corpuscular Hgb 27.9 pg (27.0-32.0); Mean Corpuscular Volume 84.7 fL (81-99); Mean Platelet Vol. 9.8 fl (6.2-12.0); Monocyte# 0.42 X10^3/uL; Monocyte% 5.2 % (0-10); NRBC Flagged by Analyzer 0 % (0-5); Neutrophil # 5.49 X10^3/uL (2.7-7.7); Platelet Count 215 K/mm3 (150-450); RBC Distribution Width CV 14.2 % (11.6-14.6); RBC Distribution Width SD 43.8 fl (35.1-43.9); Red Blood Count 3.08 M/mm3 (4.2-5.4); White Blood Count 8.1 K/mm3 (4.4-11.0)
[2023-09-03 08:24] VITALS: BP 137/69; PULSE 76; RESP 16; TEMP 36.6; O2SAT 95
[2023-09-03] MEDS: Labetalol 100 MG Tablet 300 MG PO ×3 (08:30→21:54)
[2023-09-03] MEDS: metFORMIN HCl 500 MG Tablet PO (08:31)
[2023-09-03] MEDS: Senna/Docusate Sodium 1 Tablet PO (10:59)
[2023-09-03] MEDS: NIFEdipine 90 MG Tablet PO (11:00)
[2023-09-03] MEDS: Ferrous Sulfate 325 MG Tablet PO (11:01)
[2023-09-03] MEDS: Sertraline 50 MG Tablet 25 MG PO (11:01)
[2023-09-03] MEDS: oxyCODONE 5 MG Tablet PO ×2 (11:14→16:37)
[2023-09-03] MEDS: Naproxen 500 MG Tablet PO ×2 (13:41→21:54)
[2023-09-03 13:43] VITALS: BP 121/61; PULSE 88; RESP 16; TEMP 36.3; O2SAT 96
[2023-09-03 19:56] VITALS: BP 128/67; PULSE 82; RESP 15; TEMP 36.4; O2SAT 97
[2023-09-03 21:55] VITALS: BP 126/58; PULSE 84; RESP 16
[2023-09-04] MEDS: Enoxaparin 40 MG/0.4 ML Syringe SC (00:35)
[2023-09-04] MEDS: Acetaminophen 500 MG Tablet 1000 MG PO ×2 (00:35→07:44)
[2023-09-04 02:51] VITALS: BP 113/77; PULSE 94; RESP 16; TEMP 36.8; O2SAT 94
[2023-09-04] MEDS: Naproxen 500 MG Tablet PO (06:42)
[2023-09-04] MEDS: Labetalol 100 MG Tablet 300 MG PO (06:45)
[2023-09-04 06:46] VITALS: BP 148/84; PULSE 87
[2023-09-04 07:51] VITALS: BP 131/86; PULSE 89; RESP 14; TEMP 36.6; O2SAT 97
[2023-09-04] MEDS: NIFEdipine 90 MG Tablet PO (09:42)
[2023-09-04] MEDS: Sertraline 50 MG Tablet 25 MG PO (09:42)
[2023-09-04] MEDS: metFORMIN HCl 500 MG Tablet PO (09:42)
[2023-09-04] MEDS: Senna/Docusate Sodium 1 Tablet PO (09:42)
--- NOTE | 2023-09-04 10:19 | PCM.PN.OB ---
Subjective Subjective Doing well per patient and nursing staff. Ambulating and taking PO without difficulty. Voiding and passing flatus. Pain controlled. , services for assistance. Denies headache, visual changes, chest pain, shortness of breath, leg pain or increased bleeding. Lochia normal. Objective Data Objective Data Vital Signs: Vital Signs Temp Pulse Resp BP Pulse Ox O2 Del Method 98 F 89 14 131/86 H 97 Room Air 09/04/23 07:51 09/04/23 07:51 09/04/23 07:51 09/04/23 07:51 09/04/23 07:51 09/04/23 07:51 Oxygen Delivery Method Room Air Weight: 308 lb Body Mass Index (BMI) 51.2 Intake & Output: Intake and Output for Last 24 Hours 09/02/23 09/03/23 09/04/23 23:59 23:59 23:59 Output Total 350 / 350 Balance -350 / -350 Lab / Micro Data 09/03/23 04:00 ROS Constitutional Constitutional: Reports systems reviewed and no addt'l complaints, except as documented; Denies headache(s) Eyes Eyes: Denies acute decrease in peripheral vision, blurry vision or change in vision ENT HEENT: Reports systems reviewed and no addt'l complaints, except as documented Cardiovascular Cardiovascular: Denies chest pain or dizziness Respiratory/Chest Respiratory/Chest: Denies cough, dyspnea, dyspnea on exertion, shortness of breath at rest or shortness of breath with exertion Gastrointestinal Gastrointestinal: Denies abdominal pain, diarrhea, nausea or vomiting Genitourinary Genitourinary: Denies abdominal discomfort or movement Musculoskeletal Musculoskeletal: Denies limited range of motion Integumentary Integumentary: Reports systems reviewed and no addt'l complaints, except as documented Neurologic Neurologic: Reports systems reviewed and no addt'l complaints, except as documented Psychiatric Psychiatric: Reports systems reviewed and no addt'l complaints, except as documented Endocrine Endocrinology: Reports systems reviewed and no addt'l complaints, except as documented Hematologic/Lymphatic Hematologic/Lymphatic: Reports systems reviewed and no addt'l complaints, except as documented Allergic/Immunologic Allergic/Immunologic: Reports systems reviewed and no addt'l complaints, except as documented Physical Exam Const alert and oriented x3 General Appearance: cooperative Orientation / Consciousness: awake, oriented to person, oriented to place and oriented to time Exam Limitations: no limitations HEENT normocephalic Head and Scalp: normal to inspection, normocephalic and atraumatic Face and Sinus: normal facial exam Eyes General Eye: normal appearance of both eyes Neck full ROM Chest Chest: symmetrical chest wall rise Resp normal respiratory effort and normal air movement Auscultation: clear to auscultation bilaterally Cardio regular rate, regular rhythm, S1 normal heart sound, S2 normal heart sound, no murmurs, no rub, no gallops and no clicks GI normal to inspection, nondistended, normoactive bowel sounds and non-tender GI Narrative: Dressing dry and intact appearance of the vagina normal Bladder / Kidney Exam: no CVA tenderness Back/Spine normal ROM Extremity normal to inspection and full ROM Skin no rashes or lesions noted Neuro oriented x3, CN's II-XII intact bilaterally and moves all extremities Sensorium / Orientation: awake, alert and oriented to person Motor Exam: clonus absent Deep Tendon Reflexes: Rt Patellar (L4): 2+ and Lt Patellar (L4): 2+ Assessment & Plan (1) Acute blood loss anemia: (2) S/P repeat low transverse : PLAN: Plan 1) POD #3 2) Pain management 3) Vitals stable 4) D/C home
--- NOTE | 2023-09-05 09:15 | CASEMGMT ---
Social Work Assessment Labor and Delivery Unit Patient Address:[address] [place] [address] Phone number: [phone] Date of Referral: 09/01/23 Time of Referral:? 0830 Referred By: [facility] Date of Intervention: ?09/02/23? Time of Intervention:?1300 Reason for Referral:? history of anxiety and depression Sw completed chart review and acknowledges social work consult entered due to maternal mental health history of anxiety and depression. Sw presented to bedside and introduced self to mother of baby (PAPI Jeffery) and father of baby (AMARILIS- Jn Lane). Sw explained sw role during hospitalization and completed psychosocial assessment. FOB was asleep at bedside, MOB completed [place] Depression Scale. History obtained from: medical records, MOB Household composition: Currently residing in the family home is MOB, AMARILIS and now baby Patient's parent/guardian status:? ?HELEN states that she and FOSoo have been together for 7 years. They met through mutual friends. MOB denies any concerns of domestic violence or intimate partner violence. Medical History: ?HELEN is 28 year old female who is 1, para 0- now 1 following labor and delivery of . HELEN received routine care during with [facility]. Educational Status:? Both parents graduated from high school. FOB obtained some college classes, but did not graduate. No concerns with reading, learning or comprehension. Financial Status: Both parents are gainfully employed outside of the home. FOSoo works at [employer] and is able to take some time off of work. HELEN is also gainfully employed at [employer] and is able to take adequate time off of work for maternity leave. Infant Supplies:?? Parents have obtained necessary baby supplies, including: car seat, safe sleep space, clothes, diapers, wipes and breast pump. Childcare/Caregiver(s):? HELEN states that during her maternity leave she will be the primary caregiver to baby, along with FOB. MOB states that when both parents are back to work they will be able to alternate their work schedules so they able to watch baby. Transportation:?? No barriers. Programs/Agencies Involved: ??HELEN states that she is receiving insurance through [employer] and Family services ([employer]) and is connected to [facility]. ? Children Services/Legal Issues:?No history of involvement, no issues or concerns warranting referral at this time. ?? Behavioral Health Issues: ??Mental Health History:?MOB states that AMARILIS does not have any mental health diagnoses. MOB states that she has been diagnosed with anxiety, depression and PTSD. ?MOB states that at this time she is prescribed sertraline and zoloft. MOB states that her primary care doctor is who prescribes her medication. MOB completed [place] Depression Scale, her score was a 3. Sw provided education and support.? Substance Use History:?MOB acknowledges history of marijuana use. MOB states that it was recreational and denies any use during . MOB states that she does not have any intentions of using now that baby has been born. ? Family History: MOB denies family history of addiction and significant mental health diagnoses. ? Drug Screens: ??No drug screens observed during chart review. Family/Social Stressors:? MOB deneis any concerns or stressors at this time. Support Systems: MOB states that AMARILIS, her mom and great grandma are her biggest supports at this time. Depression/Shaken Baby/Safe Sleeping:? Sw educated MOB on signs and symptoms of baby blues and depression. Sw provided literature for MOB to review. MOB expressed understanding. Sw educated MOB on shaken baby prevention and ABCs of safe sleep. MOB expressed understanding. ASSESSMENT:? MOB and baby admitted following labor and delivery. MOB maintained good eye contact and engaged in conversation during psychosocial assessment. MOB with all necessary supplies needed for baby. MOB with adequate support in place. MOB with significant mental health history positive for anxiety, depression and PTSD. MOB prescribed psychotropic medications to manage mental health symptoms. MOB receptive to support and resources provided by sw. MOB observed to provide appropriate and caring hands on care of . PLAN:? MOB and baby to be discharged when medically ready. ?No other services requested or indicated. Leroy Eagle, WHEELABRATOR OPERATOR, ARMED SECURITY OFFICER
--- NOTE | 2023-09-08 13:37 | NURSING ---
Mother notified by phone that she left some syringes of her colostrum in our breastmilk freezer. She has a Doctor's appointment tomorrow and plans to pick them up at that time.
== END 2023-09-04 11:20 | disposition home or self-care (01) | DRG 540 ==
PROVIDERS: Advanced Practice Midwife; Admitting Provider Obstetrics & Gynecology; Referring Provider Obstetrics & Gynecology; Visit Provider Obstetrics & Gynecology
PROC: 10D00Z1 Extraction of Products of Conception, Low, Open Approach (ICD-10-PCS; CPT 59514; principal; 2023-09-01 11:45)
DX: O10.92 Unspecified pre-existing hypertension complicating childbirth (principal); D62 Acute posthemorrhagic anemia; F32.A Depression, unspecified; G47.33 Obstructive sleep apnea (adult) (pediatric); O99.354 Diseases of the nervous system complicating childbirth; O90.81 Anemia of the puerperium; O99.344 Other mental disorders complicating childbirth; O26.03 Excessive weight gain in pregnancy, third trimester; Z37.0 Single live birth; Z3A.38 38 weeks gestation of pregnancy; Z79.899 Other long term (current) drug therapy; Z87.891 Personal history of nicotine dependence
CPT/HCPCS: 59025; 59050; 85025; 85027; 86780; 86850; 86900; 86901; 99221; J7120; A4216; G0378; J2405

== ENCOUNTER → 2024-05-08 | Outpatient (CLI) | payer MEDICAID, SELFPAY ==
[2024-05-08 17:08] LABS: Hematocrit 34.7 % (37-47); Hemoglobin 10.7 g/dL (12.0-15.0); Mean Corp Hgb Conc 30.8 g/dL (32-36); Mean Corpuscular Hgb 24.9 pg (27.0-32.0); Mean Corpuscular Volume 80.9 fL (81-99); Mean Platelet Vol. 9.9 fl (6.2-12.0); Platelet Count 277 K/mm3 (150-450); RBC Distribution Width CV 13.9 % (11.6-14.6); RBC Distribution Width SD 40.7 fl (35.1-43.9); Red Blood Count 4.29 M/mm3 (4.2-5.4); White Blood Count 7.3 K/mm3 (4.4-11.0)
[2024-05-08 17:23] LABS: hCG Titer Quant., Serum < 1 mIU/mL (1-3)
[2024-05-08 17:29] LABS: Anion Gap 7 (5-15); BUN 9 mg/dL (7-18); BUN/Creat Ratio 11.3 RATIO (10-20); Calcium,Total 9.4 mg/dL (8.5-10.1); Chloride 107 mmol/L (98-107); EST Glomerular Filtration Rate 92 mL/min (>60); Est Glom Filt Rate - Afr Amer 111 mL/min (>60); Glucose 93 mg/dL (74-106); Potassium 3.8 mmol/L (3.5-5.1); Sodium Level 140 mmol/L (136-145)
== END | disposition home or self-care (01) ==
LOC: VSLAB 15:56
PROVIDERS: PCP Nurse Practitioner Family; Visit Provider Nurse Practitioner Family
DX: N93.9 Abnormal uterine and vaginal bleeding, unspecified (principal)
CPT/HCPCS: 36415; 80048; 84443; 84702; 85027

== ENCOUNTER → 2024-09-18 | Outpatient (CLI) | payer MEDICAID, SELFPAY ==
[2024-09-18 15:00] LABS: hCG Titer Quant., Serum 58 mIU/mL (1-3)
== END | disposition home or self-care (01) ==
LOC: VSLAB 13:34
PROVIDERS: PCP Nurse Practitioner Family; Visit Provider Nurse Practitioner Family
DX: O03.9 Complete or unspecified spontaneous abortion without complication (principal)
CPT/HCPCS: 36415; 84702